=== PATIENT | male | born 1960 | race Caucasian/White ===

== ENCOUNTER 2023-01-06 06:01 | Emergency (ER) | payer OTHER ==
[2023-01-06 06:11] VITALS: BMI 29.0
[2023-01-06] MEDS ORDERED: MAGNESIUM SULF 50% (8.12 MEQ/2 ML-1 GM VIAL) IVPB ONE (06:13)
[2023-01-06] MEDS ORDERED: methylPREDNISolone NA SUCC 40 MG/1 ML VIAL IVPUSH ONE (06:13)
[2023-01-06] MEDS ORDERED: methylPREDNISolone NA SUCC 125 MG/2 ML VIAL ONE (06:16)
[2023-01-06] MEDS ORDERED: MAGNESIUM SULFATE IN WATER 2 GM/50 ML IVPB IVPB ONE (06:16)
[2023-01-06] MEDS ORDERED: NITROGLYCERIN SUBLINGUAL 1/150 0.4 MG TAB SL ONE (06:20)
[2023-01-06] MEDS ORDERED: methylPREDNISolone NA SUCC 125 MG/2 ML VIAL IVPUSH ONE (06:24)
[2023-01-06] MEDS: ALBUTEROL SO4 2.5/IPRATROPIUM 0.5 INH SOL 3 ML VIAL.NEB. NEB SCH (06:24)
[2023-01-06 07:15] LABS: ALBUMIN 3.8 g/dl (3.4-5.0); BLOOD UREA NITROGEN 8.2 mg/dL (7-18); CALCIUM 9.6 mg/dL (8.5-10.1); MAGNESIUM 2.2 mg/dL (1.8-2.4)
[2023-01-06 07:19] LABS: CREATININE 0.9 mg/dL (0.55-1.3)
[2023-01-06 07:20] LABS: BILIRUBIN,TOTAL 0.5 mg/dL (0.2-1); TOT PROT 7.6 g/dl (6.4-8.2)
[2023-01-06] MEDS ORDERED: AZITHROMYCIN IVPB 500 MG in DEXTROSE 5%-WATER - 250 ML IVPB ONE (07:22)
[2023-01-06] MEDS ORDERED: AZITHROMYCIN IVPB 500 MG/250 ML BAG IVPB ONE (07:28)
[2023-01-06] MEDS ORDERED: CEFTRIAXONE 1 GM/50 ML BAG ONE (07:28)
[2023-01-06 07:30] LABS: BASO % 0.9 % (0-2.0); EOS % 1.6 % (0-4.5); HEMATOCRIT 44.3 % (35.4-49); HEMOGLOBIN 15.5 GM/dL (11.7-16.9); LYMPH % 21.2 % (8-40); MCH 30.6 pg (25.7-33.7); MCHC 34.9 g/dl (32.0-35.9); MEAN CELL VOLUME 87.7 fl (80-96); MEAN PLT VOLUME 8.1 fl (7.5-11.1); MONO % 7.4 % (3.8-10.2); NEUT % 68.9 % (42.8-82.8); PLATELET COUNT 273 10^3/uL (134-434); RBC 5.05 M/mm3 (4.00-5.60); RDW 13.5 % (11.9-15.9); WHITE BLOOD COUNT 7.7 K/mm3 (4.0-10.0)
[2023-01-06 08:48] VITALS: RESP 18; TEMP 98.2
[2023-01-06] MEDS ORDERED: amLODIPine BESYLATE 5 MG TABLET (FP) PO ONE (09:41)
[2023-01-06] MEDS ORDERED: ALBUTEROL SULFATE 0.021% (0.63 MG/3 ML) VIAL.NEB NEB ONE (09:45)
[2023-01-06] MEDS ORDERED: ALBUTEROL SO4 0.083% IH SOL 2.5 MG/3 ML VIAL.NEB. NEB ONE (10:46)
[2023-01-06] MEDS ORDERED: amLODIPine BESYLATE 5 MG TABLET (FP) ONE (10:46)
[2023-01-06 12:01] VITALS: BP 192/111; PULSE 110
== END 2023-01-06 12:20 | disposition left against medical advice (07) ==
LOC: JER 06:01
PROC: 3E03329 Introduction of Other Anti-infective into Peripheral Vein, Percutaneous Approach (ICD-10-PCS; principal; 2023-01-06)
PROC: 3E033GC Introduction of Other Therapeutic Substance into Peripheral Vein, Percutaneous Approach (ICD-10-PCS; 2023-01-06)
PROC: 3E033GC Introduction of Other Therapeutic Substance into Peripheral Vein, Percutaneous Approach (ICD-10-PCS; 2023-01-06)
PROC: 3E033GC Introduction of Other Therapeutic Substance into Peripheral Vein, Percutaneous Approach (ICD-10-PCS; 2023-01-06)
PROC: 3E0F7GC Introduction of Other Therapeutic Substance into Respiratory Tract, Via Natural or Artificial Opening (ICD-10-PCS; 2023-01-06)
PROC: 3E0F7GC Introduction of Other Therapeutic Substance into Respiratory Tract, Via Natural or Artificial Opening (ICD-10-PCS; 2023-01-06)
DX: J45.21 Mild intermittent asthma with (acute) exacerbation (principal); J18.9 Pneumonia, unspecified organism; R05.1 Acute cough; R06.02 Shortness of breath; R07.89 Other chest pain; R68.83 Chills (without fever); Z20.822 Contact with and (suspected) exposure to COVID-19
CPT/HCPCS: 0241U-QW; 36415; 71045-TC-FY; 80053; 82550; 83735; 83880; 84484; 85025; 93005; 93010; 99285-25